=== PATIENT | female | born 2000 | race Caucasian/White ===

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

== ENCOUNTER 2019-02-09 09:04 | Emergency (ER) | payer MEDICAID, OTHER ==
[~2019-02-09] VITALS: Ht 165.1 cm; Wt 86.2 kg
[2019-02-09] MEDS: SODIUM CHLORIDE 0.9% 1,000 ML IV ONE ×3 (09:32→11:26)
[2019-02-09] MEDS: KETOROLAC TROMETH 30 MG/ML 1ML VIAL IV ONE (09:45)
[2019-02-09] MEDS: PROMETHAZINE HCL 25 MG/ML 1ML IV ONE (09:45)
[2019-02-09] MEDS: KETOROLAC TROMETH 60MG/2ML VIAL ONE (10:01)
[2019-02-09 10:15] LABS: Albumin 3.9 g/dL (3.4-5.0); Anion Gap 11 (5-15); Blood Urea Nitrogen 14 mg/dL (7-18); Carbon Dioxide 23 mmol/L (21-32); Chloride 108 mmol/L (98-107); Glucose 128 mg/dL (74-106); Potassium 3.4 mmol/L (3.5-5.1); Sodium 142 mmol/L (136-145)
[2019-02-09 10:20] LABS: Alanine Aminotransferase 20 U/L (13-56); Alkaline Phosphatase 107 U/L (45-117); Aspartate Aminotransferase 14 U/L (15-37); BUN/Creatinine Ratio 18.4; Bilirubin, Total 0.3 mg/dL (0.2-1.0); GFR African American 125 mL/min; GFR Non-African American 103 mL/min
[2019-02-09 10:31] LABS: Basophils # (auto) 0.1 uL; Basophils % (auto) 0.7 % (0.0-2.0); Eosinophils # (auto) 0.1 uL; Eosinophils % (auto) 0.3 % (0.0-7.0); Hematocrit 41.6 % (36.0-46.0); Hemoglobin 13.8 g/dL (12.2-16.2); Lymphocytes % (auto) 8.8 % (10.0-50.0); Mean Corpuscular Hemoglobin 27.6 pg (28.0-32.0); Mean Corpuscular Hgb Conc. 33.1 g/dL (32.0-36.0); Mean Corpuscular Volume 83.1 fL (80.0-100.0); Monocytes # (auto) 1.7 uL; Monocytes % (auto) 7.4 % (0.0-12.0); Neutrophils # (auto) 18.7 uL; Neutrophils % (auto) 82.8 % (37.0-80.0); Platelet Count (auto) 373 10^3/uL (140-450); Red Blood Cells 5.01 10^6/uL (4.0-5.20); Red Cell Distribution Width 14.4 % (11.8-14.3); White Blood Cell 22.6 10^3/uL (4.4-10.8)
[2019-02-09 10:32] LABS: INR 0.95 (0.9-1.15); Partial Thromboplastin Time 25.5 sec (23.64-32.05); Prothrombin Time 10.3 sec (9.06-12.60)
[2019-02-09 10:34] LABS: Alcohol, Urine < 3.0 mg/dL (0-5); Amphetamine Screen, Urine NEGATIVE (NEGATIVE); Barbiturate Scree,Urine NEGATIVE (NEGATIVE); Benzodiazephine Screen, Urine NEGATIVE (NEGATIVE); Cannabinoid Screen, Urine NEGATIVE (NEGATIVE); Cocaine Screen, Urine NEGATIVE (NEGATIVE); Opiate Scree,Urine NEGATIVE (NEGATIVE); Phencyclidine Screen, Urine NEGATIVE (NEGATIVE)
[2019-02-09] MEDS: TAMSULOSIN HYDROCHLORIDE 0.4 MG CAP PO ONE (11:21)
[2019-02-09] MEDS: MORPHINE SULF INJ 2 MG/ML SYRINGE 1ML IV ONE (11:21)
[2019-02-09] MEDS: cefTRIAXone 1GM/50ML D5W 50 ML IV ONE (11:21)
[2019-02-09] MEDS: POTASSIUM EFFERVESENT TAB 25 MEQ PO ONE (13:17)
[2019-02-09 13:24] VITALS: BP 112/65
== END 2019-02-09 13:59 | disposition home or self-care (01) ==
LOC: ER 09:17
DX: N13.2 Hydronephrosis with renal and ureteral calculous obstruction (principal); R33.9 Retention of urine, unspecified; Z79.899 Other long term (current) drug therapy
CPT/HCPCS: 36415; 51701; 74176; 80053; 80307; 83880; 84484; 85025; 85610; 85730; 96361; 96365; 96375; 99284; J0696; J1885; J2270; J2550; J7030